=== PATIENT | male | born 1945 | race Two or more races ===

== ENCOUNTER 2023-12-08 17:52 | Inpatient (IN) | payer BC, MEDICARE ==
[~2023-12-08] VITALS: Ht 170.2 cm; Wt 86.6 kg
[2023-12-08 18:20] VITALS: PULSE 69; RESP 15; O2SAT 96
[2023-12-08 18:22] LABS: Urine Bacteria None Seen /hpf (None Seen); Urine WBC None Seen /hpf (0 - 3)
[2023-12-08] MEDS: METOPROLOL TARTRATE 1MG/1ML-5ML VIAL IV ONE ×2 (18:29→19:09)
[2023-12-08 18:35] LABS: Urine Blood Negative /uL (Negative); Urine Clarity Clear (Clear); Urine Color Colorless (Yellow); Urine Protein, UAD Negative (Negative); Urine Specific Gravity 1.008 (1.001-1.035); Urine Urobilinogen Normal (Negative)
[2023-12-08 18:51] LABS: Amphetamine Screen, Urine Neg (NEGATIVE); Benzodiazephine Screen, Urine Neg (NEGATIVE)
[2023-12-08 18:52] LABS: Barbiturate Scree,Urine Neg (NEGATIVE); Cannabinoid Screen, Urine Neg (NEGATIVE); Cocaine Screen, Urine Neg (NEGATIVE); Opiate Scree,Urine Neg (NEGATIVE); Phencyclidine Screen, Urine Neg (NEGATIVE)
[2023-12-08 19:09] LABS: Basophils # (auto) 0.1 10 ^3/uL (0-0.2); Basophils % (auto) 0.8 % (0.0-2.0); Eosinophils # (auto) 0.2 10 ^3/uL (0-0.8); Eosinophils % (auto) 2.2 % (0.0-7.0); Hematocrit 49.9 % (41.0-53.0); Hemoglobin 16.7 g/dL (13.5-17.5); Lymphocytes # (auto) 1.4 10 ^3/uL (0.4-5.4); Lymphocytes % (auto) 18.3 % (10.0-50.0); Mean Corpuscular Hemoglobin 29.2 pg (28.0-32.0); Mean Corpuscular Hgb Conc. 33.5 g/dL (32.0-36.0); Mean Corpuscular Volume 87.1 fL (80.0-100.0); Monocytes # (auto) 0.7 10 ^3/uL (0-1.3); Monocytes % (auto) 8.8 % (0.0-12.0); Neutrophils # (auto) 5.4 10 ^3/uL (1.6-8.6); Neutrophils % (auto) 69.9 % (37.0-80.0); Nucleated Red Blood Cells % 0.3 %; Red Blood Cells 5.73 10^6/uL (4.5-5.90); Red Cell Distribution Width 14.6 % (11.8-14.3); White Blood Cell 7.8 10^3/uL (4.4-10.8)
[2023-12-08 19:30] VITALS: PULSE 120; RESP 12; O2SAT 95
[2023-12-08 19:33] LABS: Alanine Aminotransferase 22 U/L (7-40); Albumin 4.3 g/dL (3.2-4.8); Alkaline Phosphatase 94 U/L (46-116); Anion Gap 7 (5-15); Aspartate Aminotransferase 28 U/L (13-40); BUN/Creatinine Ratio 13.5 (10.0-20.0); Bilirubin, Total 0.5 mg/dL (0.2-1.0); Blood Urea Nitrogen 15 mg/dL (9-23); Calcium 9.4 mg/dL (8.5-10.1); Carbon Dioxide 30 mmol/L (20-30); Chloride 106 mmol/L (98-107); Glucose 126 mg/dL (74-106); Potassium 3.4 mmol/L (3.5-5.1); Sodium 143 mmol/L (136-145); Total Protein 6.9 g/dL (5.7-8.2)
[2023-12-08] MEDS: IOHEXOL 350 MG/ML 100ML IJ ONE (20:06)
[2023-12-08] MEDS: AMIODARONE 450mg/250ml AE 250 ML IV SCH (20:43)
[2023-12-08] MEDS ORDERED: DOCUSATE SOD 100 MG CAP PO PRN (21:00)
[2023-12-08] MEDS ORDERED: MORPHINE SULFATE INJ 2 MG/ml SYRG IV PRN ×2 (21:00→21:45)
[2023-12-08] MEDS ORDERED: ONDANSETRON HCL 4 MG/2 ML VIAL IV PRN (21:00)
[2023-12-08] MEDS ORDERED: HYDROcodone-ACET 5/325MG TAB PO PRN (21:00)
[2023-12-08] MEDS: POTASSIUM CHL 20 Meq TABLET PO ONE (21:27)
[2023-12-08] MEDS ORDERED: NITROGLYCERIN 0.4 MG SL TAB SL PRN (21:45)
[2023-12-08] MEDS: METOPROLOL TARTRATE 25 MG TAB PO SCH (22:12)
[2023-12-08] MEDS: SODIUM CHLOR 0.9% PF (SALINE LOCK) 10ML VIAL/SYR IV SCH (22:17)
[2023-12-08] MEDS: ATORVASTATIN 20 MG TAB PO SCH (22:17)
[2023-12-09] VITALS (10 sets, daily range): BP systolic 127–145; BP diastolic 76–86; PULSE 60–89; RESP 14–20; TEMP 97.5–98.3; O2SAT 94–100
[2023-12-09] MEDS ORDERED: VALS40TA2 PO (03:37)
[2023-12-09] MEDS ORDERED: CLOP75TA28 PO (03:37)
[2023-12-09] MEDS ORDERED: ATOR80TA PO (03:37)
[2023-12-09] MEDS ORDERED: AMLO1TAB22 PO (03:37)
[2023-12-09] MEDS: AMIODARONE 450mg/250ml AE 250 ML IV SCH (04:28)
[2023-12-09 06:05] LABS: Basophils # (auto) 0.1 10 ^3/uL (0-0.2); Basophils % (auto) 0.8 % (0.0-2.0); Eosinophils # (auto) 0.2 10 ^3/uL (0-0.8); Eosinophils % (auto) 2.6 % (0.0-7.0); Hemoglobin 16.9 g/dL (13.5-17.5); Lymphocytes # (auto) 2.4 10 ^3/uL (0.4-5.4); Lymphocytes % (auto) 30.4 % (10.0-50.0); Mean Corpuscular Hgb Conc. 34.5 g/dL (32.0-36.0); Monocytes # (auto) 0.8 10 ^3/uL (0-1.3); Monocytes % (auto) 10.6 % (0.0-12.0); Neutrophils # (auto) 4.3 10 ^3/uL (1.6-8.6); Neutrophils % (auto) 55.6 % (37.0-80.0); Nucleated Red Blood Cells % 0.5 %; Red Blood Cells 5.64 10^6/uL (4.5-5.90); Red Cell Distribution Width 15.1 % (11.8-14.3); White Blood Cell 7.7 10^3/uL (4.4-10.8)
[2023-12-09 06:28] LABS: Alanine Aminotransferase 20 U/L (7-40); Albumin 4.1 g/dL (3.2-4.8); Alkaline Phosphatase 82 U/L (46-116); Anion Gap 8 (5-15); Aspartate Aminotransferase 21 U/L (13-40); BUN/Creatinine Ratio 16.3 (10.0-20.0); Bilirubin, Total 0.7 mg/dL (0.2-1.0); Blood Urea Nitrogen 16 mg/dL (9-23); Calcium 9.4 mg/dL (8.5-10.1); Carbon Dioxide 28 mmol/L (20-30); Chloride 107 mmol/L (98-107); Glucose 98 mg/dL (74-106); Potassium 3.5 mmol/L (3.5-5.1); Sodium 143 mmol/L (136-145); Total Protein 6.5 g/dL (5.7-8.2)
[2023-12-09] MEDS: ASPirin 81 mg TAB PO SCH (10:13)
[2023-12-09 12:27] LABS: Magnesium 2.2 mg/dL (1.6-2.6)
[2023-12-09] MEDS: AMIODARONE HCL 200 MG TAB PO ONE (13:16)
[2023-12-09] MEDS: POTASSIUM EFFERVESENT TAB 25 MEQ PO ONE (13:17)
[2023-12-09] MEDS: AMIODARONE HCL 200 MG TAB PO SCH (21:35)
[2023-12-09] MEDS: ACETAMINOPHEN 325 MG TAB PO PRN (21:37)
[2023-12-09] MEDS: ATORVASTATIN 20 MG TAB PO SCH (21:38)
[2023-12-10 05:19] VITALS: BP 127/71; PULSE 61; RESP 19; TEMP 98; O2SAT 95
[2023-12-10 08:00] VITALS: PULSE 54
[2023-12-10 09:29] VITALS: BP 115/61; PULSE 77; RESP 18; TEMP 98; O2SAT 97
[2023-12-10] MEDS: CLOPIDOGREL BISULFATE 75 MG TAB PO SCH (09:43)
[2023-12-10] MEDS: APIXABAN 5 MG TAB PO ONE (10:36)
[2023-12-10 11:06] LABS: Anion Gap 6 (5-15); Carbon Dioxide 27 mmol/L (20-30); Chloride 106 mmol/L (98-107); Potassium 3.9 mmol/L (3.5-5.1); Sodium 139 mmol/L (136-145)
[2023-12-10 11:07] LABS: Calcium 9.5 mg/dL (8.5-10.1)
[2023-12-10 11:13] LABS: BUN/Creatinine Ratio 15.5 (10.0-20.0); Blood Urea Nitrogen 17 mg/dL (9-23); Glucose 125 mg/dL (74-106); Magnesium 2.1 mg/dL (1.6-2.6)
[2023-12-10 12:43] VITALS: BP 140/89; PULSE 77; RESP 17; TEMP 98.1; O2SAT 94
[2023-12-10] MEDS ORDERED: FLE50T PO (14:20)
[2023-12-10] MEDS ORDERED: APIX5TAB PO (14:20)
[2023-12-10] MEDS ORDERED: MET25T PO (14:20)
[2023-12-10] MEDS: FLECAINIDE ACETATE 50 MG TAB PO SCH (17:00)
[2023-12-10] MEDS: APIXABAN 5 MG TAB PO SCH (18:02)
[2023-12-10] MEDS ORDERED: METOPROLOL TARTRATE 25 MG TAB PO SCH (22:00)
== END 2023-12-10 18:00 | disposition home or self-care (01) | DRG 310 ==
LOC: EDBD 17:52 → ER 17:52 → TELE-WESTW 21:45 → TELE 21:45 → TELE-WESTW 23:41
PROVIDERS: ADMIT Nurse Practitioner Family; ATTEND Internal Medicine
DX: I48.0 Paroxysmal atrial fibrillation (principal); E87.6 Hypokalemia; I25.10 Atherosclerotic heart disease of native coronary artery without angina pectoris; I10 Essential (primary) hypertension; E78.5 Hyperlipidemia, unspecified; J98.4 Other disorders of lung; Z88.0 Allergy status to penicillin; Z91.041 Radiographic dye allergy status; Z79.899 Other long term (current) drug therapy; Z82.49 Family history of ischemic heart disease and other diseases of the circulatory system; Z87.891 Personal history of nicotine dependence; Z93.3 Colostomy status; Z85.038 Personal history of other malignant neoplasm of large intestine; Z79.01 Long term (current) use of anticoagulants; Z98.61 Coronary angioplasty status
CPT/HCPCS: 36415; 70450; 71045; 71250; 80048; 80053; 80061; 80307; 81001; 83036; 83605; 83735; 83880; 84443; 84484; 85025; 85379; 87040; 93005; 93306; 93970; G0378

== ENCOUNTER → 2024-03-05 | Outpatient (CLI) | payer BC, MEDICARE ==
[~2024-03-05] VITALS: Ht 170.2 cm; Wt 83.5 kg
[~2024-03-05] MED LIST: AMLO1TAB22 PO; APIX5TAB PO; ATOR80TA PO; CLOP75TA28 PO; FLE50T PO; MET25T PO; VALS40TA2 PO
[2024-03-05] MEDS: ADENOSINE 70 MG in GIVE UN-DILUTED 0 ML IV STA (12:18)
== END | disposition home or self-care (01) ==
LOC: XY 10:35
PROVIDERS: ATTEND Student in an Organized Health Care Education/Training Program
DX: I25.9 Chronic ischemic heart disease, unspecified (principal); I10 Essential (primary) hypertension; E78.5 Hyperlipidemia, unspecified; J98.4 Other disorders of lung; I48.91 Unspecified atrial fibrillation; Z79.899 Other long term (current) drug therapy
CPT/HCPCS: 78452; 93017; A9500; J0153